=== PATIENT | female | born 1980 | race Hispanic/Latino ===

== ENCOUNTER 2022-04-01 07:14 | Day surgery (SDC) | payer OTHER ==
[~2022-04-01] VITALS: Ht 157.5 cm; Wt 82.6 kg
[~2022-04-01 07:14] MED LIST: B-12100010 PO; CHILCHW19 PO; NS 1,000 ML IV ONE; VITA1TAB26 PO; [UNRECOGNIZED DRUG - OTHER] PO; [UNRECOGNIZED DRUG - OTHER] PO
[2022-04-01] MEDS ORDERED: fentaNYL 100 MCG/2 ML INJECTION As Ordered ONE (08:13)
[2022-04-01] MEDS ORDERED: LIDOCAINE 2% 100MG/5ML SDV (FOR ANES.) As Ordered ONE (08:13)
[2022-04-01] MEDS ORDERED: propofoL 500 MG/50 ML VIAL As Ordered ONE (08:13)
[2022-04-01 08:50] VITALS: BP 104/56
== END 2022-04-01 09:03 | disposition home or self-care (01) ==
LOC: M OPP 07:14
PROVIDERS: ATTEND Internal Medicine Gastroenterology
DX: Z12.11 Encounter for screening for malignant neoplasm of colon (principal); Z83.71 Family history of colonic polyps; K64.0 First degree hemorrhoids; K59.00 Constipation, unspecified; Z98.84 Bariatric surgery status; K21.00 Gastro-esophageal reflux disease with esophagitis, without bleeding; R12 Heartburn; Z79.899 Other long term (current) drug therapy
CPT/HCPCS: 43239; 45378; 88305; J3010